=== PATIENT | male | born 1990 | race African-American/Black ===

== ENCOUNTER 2019-12-13 06:39 | Emergency (ER) | payer OTHER ==
[~2019-12-13] VITALS: Ht 172.7 cm; Wt 71.7 kg
[2019-12-13] MEDS ORDERED: KEFLEX500 M1 PO (07:26)
[2019-12-13 07:36] VITALS: BP 146/82
== END 2019-12-13 07:33 | disposition home or self-care (01) ==
LOC: ER 06:39
DX: S91.301A Unspecified open wound, right foot, initial encounter (principal); F17.210 Nicotine dependence, cigarettes, uncomplicated; W34.09XA Accidental discharge from other specified firearms, initial encounter; Y93.89 Activity, other specified; Y92.89 Other specified places as the place of occurrence of the external cause; Y99.8 Other external cause status

== ENCOUNTER 2019-12-19 07:25 | Emergency (ER) | payer OTHER ==
[~2019-12-19] VITALS: Ht 172.7 cm; Wt 74.8 kg
[~2019-12-19 07:25] MED LIST: KEFLEX500 M1 PO
[2019-12-19 07:58] LABS: ABSOLUTE NEUTROPHILS 6.9 thou/uL (1.4-8.2); BASOPHILS 0.6 % (0.0-2.0); EOSINOPHILS 0.3 % (0.0-3.0); HEMATOCRIT 48.9 % (42.0-52.0); HEMOGLOBIN 16.3 gm/dL (14.0-18.0); MCH 28.3 pg (26.0-34.0); MCHC 33.3 g/dL (28.0-37.0); MCV 84.9 fL (80.0-100.0); MONOCYTES 6.1 % (1.0-8.0); PLATELET COUNT 236 thou/uL (150-400); RBC 5.76 mil/uL (4.50-6.00); RDW 15.1 % (10.5-14.5); WBC 8.5 thou/uL (4.0-11.0)
[2019-12-19 08:06] LABS: CALCIUM 9.1 mg/dL (8.5-10.1); CREATININE 1.2 mg/dL (0.7-1.3); POTASSIUM 3.4 mmol/L (3.5-5.1)
[2019-12-19 08:12] LABS: ALBUMIN 4.1 g/dL (3.4-5.0); TOTAL BILIRUBIN 0.3 mg/dL (<0.1-1.0); TOTAL PROTEIN 8.4 g/dL (6.4-8.2)
[2019-12-19 08:51] LABS: URINE BLOOD TRACE (Negative); URINE CLARITY CLEAR; URINE GLUCOSE-RANDOM* NEGATIVE (Negative); URINE KETONES TRACE (Negative); URINE LEUKOCYTES-REFLEX NEGATIVE (Negative); URINE NITRITE-REFLEX NEGATIVE (Negative); URINE PROTEIN (DIPSTICK) 3+ (Negative); URINE SPECIFIC GRAVITY >= 1.030 (1.005-1.035)
[2019-12-19 09:01] LABS: ICTOTEST (BILI CONFIRMATORY) Negative (Negative); URINE BILIRUBIN NEGATIVE (Negative); URINE COLOR DK YELLOW
[2019-12-19 09:12] LABS: CASTS None Seen /LPF (None Seen); MUCUS >6 Heavy strn/LPF (None Seen); SQUAMOUS 0-3 Few /LPF (0-3)
[2019-12-19 09:13] LABS: BACTERIA-REFLEX 1-9 Few /HPF (None Seen); CRYSTALS None Seen /LPF (None Seen); URINE RBC 0-2 Rare /HPF (0-2); URINE WBC-REFLEX 0-5 Rare /HPF (0-5)
[2019-12-19] MEDS ORDERED: ZOFRAN ODT4 MG PO (11:46)
[2019-12-19] MEDS ORDERED: CIPRO500 M1 PO (11:46)
[2019-12-19] MEDS ORDERED: FLAGYL500 M1 PO (11:46)
[2019-12-19] MEDS ORDERED: TRAMADOL 50 MG50 MG PO (11:46)
[2019-12-19 12:26] VITALS: BP 125/88
== END 2019-12-19 12:28 | disposition home or self-care (01) ==
LOC: ER 07:25
PROVIDERS: Emergency Medicine Emergency Medical Services
DX: K52.9 Noninfective gastroenteritis and colitis, unspecified (principal); R11.2 Nausea with vomiting, unspecified; F17.210 Nicotine dependence, cigarettes, uncomplicated

== ENCOUNTER 2020-06-04 15:49 | Emergency (ER) | payer OTHER ==
[~2020-06-04] VITALS: Ht 172.7 cm; Wt 71.7 kg
[~2020-06-04 15:49] MED LIST changes: +CIPRO500 M1 PO; +FLAGYL500 M1 PO; +TRAMADOL 50 MG50 MG PO; +ZOFRAN ODT4 MG PO
[2020-06-04 17:32] LABS: ABSOLUTE NEUTROPHILS 3.5 thou/uL (1.4-8.2); BASOPHILS 0.6 % (0.0-2.0); EOSINOPHILS 2.7 % (0.0-3.0); HEMATOCRIT 47.3 % (42.0-52.0); HEMOGLOBIN 15.8 gm/dL (14.0-18.0); LYMPHOCYTES 23.4 % (24.0-44.0); MCH 28.7 pg (26.0-34.0); MCHC 33.5 g/dL (28.0-37.0); MCV 85.7 fL (80.0-100.0); MONOCYTES 11.9 % (1.0-8.0); PLATELET COUNT 241 thou/uL (150-400); POLYS 61.4 % (36.0-66.0); RBC 5.51 mil/uL (4.50-6.00); RDW 14.1 % (10.5-14.5); WBC 5.7 thou/uL (4.0-11.0)
[2020-06-04 17:40] LABS: CALCIUM 7.8 mg/dL (8.5-10.1); CREATININE 1.2 mg/dL (0.7-1.3); POTASSIUM 3.4 mmol/L (3.5-5.1)
[2020-06-04 17:45] LABS: ALBUMIN 3.3 g/dL (3.4-5.0); DIRECT BILIRUBIN 0.1 mg/dL (<0.1-0.2); TOTAL BILIRUBIN 0.7 mg/dL (0.2-1.0); TOTAL PROTEIN 6.7 g/dL (6.4-8.2)
[2020-06-04 19:11] VITALS: BP 121/69
== END 2020-06-04 19:15 | disposition home or self-care (01) ==
LOC: ER 15:49
PROVIDERS: Emergency Medicine
DX: K30 Functional dyspepsia (principal); R06.6 Hiccough; R06.02 Shortness of breath; F17.210 Nicotine dependence, cigarettes, uncomplicated; Z98.890 Other specified postprocedural states

== ENCOUNTER 2020-08-22 19:04 | Emergency (ER) | payer OTHER ==
[~2020-08-22] VITALS: Ht 172.7 cm; Wt 72.6 kg
[2020-08-22 19:06] VITALS: BP 124/84
[2020-08-22 19:18] LABS: URINE BILIRUBIN 2+ (Negative); URINE BLOOD 3+ (Negative); URINE CLARITY CLEAR; URINE COLOR YELLOW; URINE GLUCOSE-RANDOM* NEGATIVE (Negative); URINE KETONES 1+ (Negative); URINE LEUKOCYTES-REFLEX NEGATIVE (Negative); URINE NITRITE-REFLEX NEGATIVE (Negative); URINE PROTEIN (DIPSTICK) 2+ (Negative); URINE SPECIFIC GRAVITY >= 1.030 (1.005-1.035)
[2020-08-22 19:22] LABS: ICTOTEST (BILI CONFIRMATORY) Negative (Negative)
[2020-08-22 19:25] LABS: ABSOLUTE NEUTROPHILS 7.2 thou/uL (1.4-8.2); BASOPHILS 0.8 % (0.0-2.0); EOSINOPHILS 0.1 % (0.0-3.0); HEMATOCRIT 48.7 % (42.0-52.0); HEMOGLOBIN 16.5 gm/dL (14.0-18.0); LYMPHOCYTES 11.9 % (24.0-44.0); MCH 28.4 pg (26.0-34.0); MCHC 33.9 g/dL (28.0-37.0); MCV 83.9 fL (80.0-100.0); MONOCYTES 7.5 % (1.0-8.0); PLATELET COUNT 216 thou/uL (150-400); POLYS 79.7 % (36.0-66.0)
[2020-08-22 19:44] LABS: CALCIUM 9.4 mg/dL (8.5-10.1); POTASSIUM 3.7 mmol/L (3.5-5.1)
[2020-08-22 19:45] LABS: SQUAMOUS 0-3 Few /LPF (0-3)
[2020-08-22 19:46] LABS: CASTS None Seen /LPF (None Seen); CRYSTALS None Seen /LPF (None Seen); URINE WBC-REFLEX 0-5 Rare /HPF (0-5)
[2020-08-22 19:47] LABS: BACTERIA-REFLEX 1-9 Few /HPF (None Seen); URINE RBC 0-2 Rare /HPF (0-2)
[2020-08-22 19:50] LABS: ALBUMIN 4.2 g/dL (3.4-5.0); TOTAL BILIRUBIN 0.6 mg/dL (0.2-1.0); TOTAL PROTEIN 8.4 g/dL (6.4-8.2)
[2020-08-22] MEDS ORDERED: OMEPRAZOLE 20 M20 M1 PO (21:49)
[2020-08-22] MEDS ORDERED: ONDANSETRON HCL4 M2 PO (21:49)
== END 2020-08-22 22:41 | disposition home or self-care (01) ==
LOC: ER 19:04
PROVIDERS: Emergency Medicine
DX: R11.2 Nausea with vomiting, unspecified (principal); R10.9 Unspecified abdominal pain; F17.210 Nicotine dependence, cigarettes, uncomplicated